=== PATIENT | male | born 1960 | race Two or more races ===

== ENCOUNTER 2024-04-12 05:50 | Day surgery (SDC) | payer OTHER ==
[2024-04-12] MEDS ORDERED: CEFAZOLIN SODIUM 1,000 MG VIAL ONE (06:10)
[2024-04-12] MEDS ORDERED: EPINEPHRINE HCL/PF 1 MG/ML AMPUL ONE (07:00)
[2024-04-12] MEDS ORDERED: POVIDONE-IODINE 118 ML BOTT TOP ONE (07:00)
[2024-04-12] MEDS ORDERED: POVIDONE-IODINE SCRUB 118 ML BOTT TOP ONE (07:01)
[2024-04-12] MEDS ORDERED: LIDOCAINE HCL 1%/EPINEPHRINE 20ML VIAL IJ ONE (07:01)
[2024-04-12] MEDS ORDERED: BACITRACIN ZINC 0.9 GM OINT.PACKET TOP ONE (09:15)
[2024-04-12] MEDS ORDERED: CIPROFLOXACIN HCL 0.175 MG/DR DROPS OTIC ONE (09:15)
[2024-04-12] MEDS ORDERED: DEXAMETHASONE SODIUM PHOSPHATE 4 MG/ML VIAL ONE (09:58)
[2024-04-12] MEDS ORDERED: AMOX-CLAV 875-1 EAC1 PO (10:33)
== END 2024-04-12 12:10 | disposition home or self-care (01) ==
LOC: CIR.AMB 05:50
PROVIDERS: ATTEND Otolaryngology Otology & Neurotology
DX: H90.3 Sensorineural hearing loss, bilateral (principal); E11.9 Type 2 diabetes mellitus without complications; I10 Essential (primary) hypertension
CPT/HCPCS: 69930; L8614